=== PATIENT | female | born 1970 | race Two or more races ===

== ENCOUNTER 2025-01-10 21:29 | Inpatient (IN) | payer BC, MEDICAID ==
[~2025-01-10] VITALS: Ht 144.8 cm; Wt 72.2 kg
[2025-01-10] MEDS ORDERED: ONDANSETRON HCL/PF 4 MG/2 ML VIAL ONE (21:59)
[2025-01-10] MEDS: ONDANSETRON HCL/PF 4 MG/2 ML VIAL IV ONE (21:59)
[2025-01-10 22:55] LABS: CALCIUM, SERUM 8.6 mg/dL (8.5-10.1); CREATININE 0.8 mg/dL (0.6-1.3); SODIUM SERUM 138.0 mmol/L (136-145); UREA NITROGEN, BLOOD 18.0 mg/dL (7-18)
[2025-01-10 22:59] LABS: PHOSPHORUS 3.5 mg/dL (2.5-4.9)
[2025-01-10 23:01] LABS: PLATELET COUNT (AUTO) 274 K/uL (150-450); RED BLOOD CELL COUNT(AUTO) 4.55 MIL/uL (4.0-5.2); RED CELL DISTRIBUTION WIDTH 13.2 % (11.5-15.0); WHITE BLOOD COUNT (AUTO) 15.9 K/uL (4.3-11.0)
[2025-01-10 23:35] LABS: SITE, VBG VBG - N/A; VBG BASE EXCESS -6.0 mmol/L (-2.0-3.0); VBG HCO3 20.3 mmol/L (22.0-29.0); VBG MetHb 0.3 % (0.5-1.5); VBG OXYGEN SATURATION 74.1 % (60.0-85.0); VBG PCO2 43.0 mmHg (38.0-54.0); VBG PH 7.292 (7.320-7.430); VBG PO2 44.3 mmHg (23.0-48.0); VBG TOTAL HEMOGLOBIN 15.3 G/dL (12.0-16.0)
[2025-01-10] MEDS ORDERED: METOCLOPRAMIDE HCL 10 MG/2 ML VIAL ONE (23:51)
[2025-01-10] MEDS: IV LR 1000 ML 1,000 ML BAG IV ONE (23:55)
[2025-01-10] MEDS: METOCLOPRAMIDE HCL 10 MG/2 ML VIAL IV ONE (23:55)
[2025-01-11] VITALS (12 sets, daily range): BP systolic 117–159; BP diastolic 63–95; TEMP 97.7–98.7; O2SAT 96–98
[2025-01-11] MEDS ORDERED: ONDANSETRON HCL/PF - ER 4 MG/2 ML VIAL IV ONE
[2025-01-11 01:14] LABS: APPEARANCE,URINE CLEAR (CLEAR); BLOOD, URINE 1+ Ery/uL (NEGATIVE); LEUKOCYTE ESTERASE ,URINE NEGATIVE (NEGATIVE); NITRITE, URINE NEGATIVE (NEGATIVE); UGLUCOSE 3+ mg/dL (NEGATIVE)
[2025-01-11 01:16] LABS: PREGNANCY TEST URINE QUAL NEGATIVE (NEGATIVE)
[2025-01-11 01:28] LABS: ADD URINE CULTURE YES
[2025-01-11 01:29] LABS: SQUAMOUS EPITHELIAL CELL,UR Moderate /HPF (None Seen)
[2025-01-11] MEDS ORDERED: IV PREMIX NS + 40 MEQ KCL 1 L IV PRN (02:30)
[2025-01-11] MEDS ORDERED: INSULIN REGULAR, HUMAN 100 UNIT/ML 10 ML VIAL ONE (02:41)
[2025-01-11 02:43] LABS: CALCIUM, SERUM 9.0 mg/dL (8.5-10.1); CREATININE 0.9 mg/dL (0.6-1.3); SODIUM SERUM 139.0 mmol/L (136-145); UREA NITROGEN, BLOOD 16.0 mg/dL (7-18)
[2025-01-11 02:47] LABS: PHOSPHORUS 4.2 mg/dL (2.5-4.9)
[2025-01-11] MEDS: INSULIN REGULAR, HUMAN 100 UNITS in IV NS 0.9% 100 ML IV PRN (02:55)
[2025-01-11] MEDS ORDERED: IV PREMIX NS +20MEQ KCL 1 L IV ONE (02:55)
[2025-01-11] MEDS ORDERED: MAG HYDROX/AL HYDROX/SIMETH 30 ML UDC PO PRN (03:00)
[2025-01-11] MEDS ORDERED: ONDANSETRON HCL/PF 4 MG/2 ML VIAL IVP PRN (03:00)
[2025-01-11] MEDS ORDERED: IV NS 0.9% 1,000 ML IV PRN (03:00)
[2025-01-11] MEDS ORDERED: MAGNESIUM HYDROXIDE 30 ML UDC PO PRN (03:00)
[2025-01-11] MEDS ORDERED: DEXTROSE 50%-WATER 50 ML DISP.SYRIN IV PRN (03:00)
[2025-01-11] MEDS ORDERED: POTASSIUM CHLORIDE 20 MEQ TAB.PRT.SR PO ONE (03:01)
[2025-01-11] MEDS: POTASSIUM CHLORIDE 20 MEQ TAB.PRT.SR PO ONE (03:05)
[2025-01-11] MEDS: IV PREMIX NS +20MEQ KCL 1 L IV PRN (03:28)
[2025-01-11 04:35] LABS: CALCIUM, SERUM 9.0 mg/dL (8.5-10.1); CREATININE 0.8 mg/dL (0.6-1.3); SODIUM SERUM 139.0 mmol/L (136-145); UREA NITROGEN, BLOOD 14.0 mg/dL (7-18)
[2025-01-11 04:38] LABS: PHOSPHORUS 3.9 mg/dL (2.5-4.9)
[2025-01-11] MEDS: BLOOD SUGAR DIAGNOSTIC 1 EACH STRIP IN SCH (06:00)
[2025-01-11 06:16] LABS: CALCIUM, SERUM 8.8 mg/dL (8.5-10.1); CREATININE 0.8 mg/dL (0.6-1.3); SODIUM SERUM 141.0 mmol/L (136-145); UREA NITROGEN, BLOOD 13.0 mg/dL (7-18)
[2025-01-11 06:18] LABS: PHOSPHORUS 4.1 mg/dL (2.5-4.9)
[2025-01-11] MEDS ORDERED: EMPA25TA PO (08:22)
[2025-01-11] MEDS ORDERED: ASPI-1420 PO (08:22)
[2025-01-11] MEDS: IV NS 0.9% 1,000 ML IV PRN (10:14)
[2025-01-11] MEDS: PANTOPRAZOLE 40 MG VIAL IV SCH (10:17)
[2025-01-11] MEDS: METOCLOPRAMIDE HCL 10 MG/2 ML VIAL IV SCH (10:17)
[2025-01-11] MEDS: ENOXAPARIN SODIUM 40 MG/0.4 ML DISP.SYRIN SQ SCH (10:22)
[2025-01-11] MEDS: INSULIN REGULAR, HUMAN 100 UNIT/ML 3 ML VIAL SQ PRN (10:32)
[2025-01-11 11:19] LABS: CALCIUM, SERUM 9.4 mg/dL (8.5-10.1); CREATININE 0.7 mg/dL (0.6-1.3); SODIUM SERUM 141.0 mmol/L (136-145); UREA NITROGEN, BLOOD 12.0 mg/dL (7-18)
[2025-01-11] MEDS: ASPIRIN EC 81 MG TABLET.DR PO SCH (12:25)
[2025-01-11] MEDS: EMPAGLIFLOZIN 25 MG TABLET PO SCH (14:08)
[2025-01-11] MEDS: ACETAMINOPHEN 325 MG TABLET PO PRN (20:26)
[2025-01-12 08:14] LABS: PLATELET COUNT (AUTO) 258 K/uL (150-450); RED BLOOD CELL COUNT(AUTO) 4.46 MIL/uL (4.0-5.2); RED CELL DISTRIBUTION WIDTH 13.2 % (11.5-15.0); WHITE BLOOD COUNT (AUTO) 10.2 K/uL (4.3-11.0)
[2025-01-12 08:32] LABS: CALCIUM, SERUM 8.4 mg/dL (8.5-10.1); CREATININE 0.6 mg/dL (0.6-1.3); PHOSPHORUS 3.3 mg/dL (2.5-4.9); SODIUM SERUM 140.0 mmol/L (136-145); UREA NITROGEN, BLOOD 12.0 mg/dL (7-18)
[2025-01-12] MEDS: PANTOPRAZOLE 40 MG TABLET.DR PO SCH (09:05)
[2025-01-12 09:30] VITALS: BP 125/75
== END 2025-01-12 14:25 | disposition home or self-care (01) | DRG 639 ==
LOC: ER 21:34 → ICU IN 01-11 03:06 → ICU 01-11 08:15 → MEDSG1 01-11 18:55
PROVIDERS: ADMIT Student in an Organized Health Care Education/Training Program; ATTEND Student in an Organized Health Care Education/Training Program
DX: E11.10 Type 2 diabetes mellitus with ketoacidosis without coma (principal); D72.829 Elevated white blood cell count, unspecified; E87.6 Hypokalemia; Z79.4 Long term (current) use of insulin; Z91.199 Patient's noncompliance with other medical treatment and regimen due to unspecified reason
CPT/HCPCS: 36415; 80048-TC; 81001; 82803-TC; 82962-TC; 83735-TC; 84100-TC; 84703-TC; 85025-TC; 87081-TC; 87086-TC; A4223; G0378; J1650; J1815; J2405; J2470; J2765; J3490; J7030; J7042; J7120